=== PATIENT | male | born 1935 | race Caucasian/White ===

== ENCOUNTER 2020-07-02 08:32 | Inpatient (IN) | payer MEDICARE, MEDICAID, SELFPAY ==
[~2020-07-02] VITALS: Ht 172.7 cm; Wt 140.6 kg
--- NOTE | 2020-07-02 08:35 | NUR ---
BIBA TAKEN TO BED 6
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
[2020-07-02 08:42] VITALS: BP 130/92
--- NOTE | 2020-07-02 08:59 | NUR ---
lab at bedside. gave urine collection
--- NOTE | 2020-07-02 09:08 | NUR ---
XRAY AT PT BEDSIDE
--- NOTE | 2020-07-02 09:13 | NUR ---
MACIEJ RICH AND NOVEL SAMPLES COLLECTED AND GIVEN TO DRAWER MAKER
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
[2020-07-02 09:32] LABS: BASOPHILS # (AUTO) 0.1 K/uL (0.00-0.22); BASOPHILS % (AUTO) 1.1 % (0.0-2.0); EOSINOPHILS # (AUTO) 0.1 K/uL (0-0.4); EOSINOPHILS % (AUTO) 1.6 % (0.0-4.0); HEMATOCRIT 34.4 % (36-52); HEMOGLOBIN 11.1 g/dL (12.0-18.0); LYMPHOCYTES # (AUTO) 0.9 K/uL (2.0-11.5); MEAN CORPUSCULAR HEMOGLOBIN 29 pg (27-31); MEAN CORPUSCULAR HGB CONC 32 g/dL (33-37); MEAN CORPUSCULAR VOLUME 89.2 fL (80-94); MONOCYTES # (AUTO) 0.3 K/uL (0.8-1.0); MONOCYTES % (AUTO) 6.1 % (1.7-9.3); NEUTROPHILS # (AUTO) 4.1 K/uL (1.8-7.7); NEUTROPHILS % (AUTO) 74.2 % (42.2-75.2); PLATELET COUNT (AUTO) 181 K/uL (140-450); RED BLOOD CELL COUNT(AUTO) 3.86 MIL/uL (4.20-6.10); RED CELL DISTRIBUTION WIDTH 17.3 % (11.6-13.7); WHITE BLOOD COUNT (AUTO) 5.6 K/uL (4.8-10.8)
--- NOTE | 2020-07-02 09:43 | NUR ---
PT REQUESTING ASSISTANCE WITH URINAL.
[2020-07-02 09:44] LABS: APPEARANCE,URINE CLEAR (CLEAR); BILIRUBIN,URINE NEGATIVE (NEGATIVE); BLOOD, URINE TRACE-I (NEGATIVE); COLOR,URINE YELLOW (YELLOW); LEUKOCYTE ESTERASE ,URINE NEGATIVE (NEGATIVE); NITRITE, URINE POSITIVE (NEGATIVE); UGLUCOSE NEGATIVE (NEGATIVE)
[2020-07-02 09:50] LABS: ACETAMINOPHEN < 0.5 ug/ml (10-30); ALBUMIN 2.8 g/dL (3.4-5.0); ANION GAP 14.2 (8-16); ASPARTATE AMINOTRANSFERASE 54 U/L (15-37); CARBON DIOXIDE 23.1 mmol/L (21-32); CHLORIDE 107 mmol/L (98-107); GLUCOSE 106 mg/dL (74-106); POTASSIUM 3.3 mmol/L (3.5-5.1); SALICYLATE < 2.8 mg/dL (2.8-20.0); SODIUM SERUM 141 mmol/L (136-145); TOTAL BILIRUBIN 0.4 mg/dL (0.0-1.0); UREA NITROGEN, BLOOD 14 mg/dL (7-18)
[2020-07-02 09:51] LABS: BARBITURATE, URINE NEGATIVE ng/ml (NEG <=200); BENZODIAZEPINE, URINE NEGATIVE ng/mL (NEG <=200); CANNABINOID, URINE NEGATIVE ng/mL (NEG <=50); COCAINE, URINE NEGATIVE ng/mL (NEG <=300); OPIATE, URINE NEGATIVE ng/mL (NEG <=2000); PHENCYCLIDINE SCREEN,URINE NEGATIVE ng/mL (NEG <=25)
[2020-07-02 10:08] LABS: RBC,URINE 0-5 /HPF (0-5)
--- NOTE | 2020-07-02 10:14 | NUR ---
PT REFUSING TO CHANGE INTO A GOWN AT THIS TIME.
--- NOTE | 2020-07-02 10:44 | NUR ---
PT REFUSING IV INSERTING AND ABX. DR CULVER MADE AWARE.
[2020-07-02] MEDS ORDERED: guaiFENesin DM 200/20 MG-10 ML 10 ML UDC PO PRN (10:50)
[2020-07-02] MEDS ORDERED: POTASSIUM CHLORIDE 10 MEQ TABER PO PRN (10:50)
[2020-07-02] MEDS ORDERED: ACETAMINOPHEN 325 MG TAB PO PRN (10:50)
[2020-07-02] MEDS ORDERED: ZOLPIDEM 5 MG TAB PO PRN (10:50)
[2020-07-02] MEDS ORDERED: ONDANSETRON 4 MG/2 ML VIAL IM/IVP PRN (10:50)
[2020-07-02] MEDS ORDERED: DOCUSATE SODIUM 100 MG GELCAP PO PRN (10:50)
--- NOTE | 2020-07-02 11:00 | NUR ---
Per pt takes gabapentin, benzononatate, levothyroxine, cephalexine, omeprazole, netropolol, atorvastatin, pradaxan, and cefprodoxime. Pt unable to recall dosages and when it is taken.
--- NOTE | 2020-07-02 11:11 | NUR ---
REPORT GIVEN TO AMY MENDOZA. ETA 10 MINS
[2020-07-02 11:20] VITALS: BP 159/61
[2020-07-02] MEDS: NACL 0.9% 1,000 ML IV SCH ×2 (11:30→18:03)
--- NOTE | 2020-07-02 11:38 | NUR ---
Patient will be admitted to care of DR. ELIZABET FELICIANO. Admited to [facility]. Will go to room 109B. Belongings list completed. Report to AMY MENDOZA.
[2020-07-02 11:51] LABS: CHOL/HDL RATIO 4.6 (1-4.5); FREE T4 (FREE THYROXINE) 1.04 ng/dL (0.76-1.46); MAGNESIUM 1.6 mg/dL (1.8-2.4); PHOSPHORUS 2.5 mg/dL (2.5-4.9); THYROID STIMULATING HORMONE 10.01 uIU/mL (0.34-3.74)
[2020-07-02 12:07] LABS: PROTHROMBIN TIME 11.2 secs (10.8-13.4)
--- NOTE | 2020-07-02 12:35 | NUR ---
PATIENT REFUSED CT OF HEAD. MADE AWARE.
[2020-07-02] MEDS: Z-GUARD PASTE TP SCH (13:00)
--- NOTE | 2020-07-02 15:18 | NUR ---
PATIENT SITTING AT SIDE OF THE BED, ASSISTED PATIENT TO GO BACK TO BED IN SUPINE POSITION, NO ACUTE DISTRESS NOTED. WILL CONTINUE TO MONITOR.
[2020-07-02 16:00] VITALS: BP 141/79
--- NOTE | 2020-07-02 16:09 | NUR ---
P.T. NOTES P.T. EVAL COMPLETED; REFER TO EVAL FOR DETAILS.
--- NOTE | 2020-07-02 17:12 | NUR ---
[facility] has faxed packet to following facilities for review [facility]
--- NOTE | 2020-07-02 17:12 | NUR ---
[facility] aware of pt
--- NOTE | 2020-07-02 17:13 | NUR ---
Pt pending PCR covid results
[2020-07-02] MEDS ORDERED: DEXTROSE 50% 50 ML SYR IVP PRN (17:30)
--- NOTE | 2020-07-02 18:04 | NUR ---
PATIENT ALLOWED SN TO START IV AT THIS TIME, WHICH HAS BEEN REFUSED IN THE ER. NEW IV STARTED AT LEFT HAND 22G. IVF NS STARTED.
--- NOTE | 2020-07-02 19:45 | NUR ---
ENDORSED PATIENT TO EQUIPMENT MECHANIC SPECIALIST RN FOR CONTINUITY OF CARE. PATIENT IN STABLE CONDITION.
[2020-07-02 20:00] VITALS: BP 113/82
[2020-07-02] MEDS: BLOOD GLUCOSE MONITORING 1 DEV DEV FS SCH (21:00)
[2020-07-02] MEDS: DABIGATRAN ETEXILATE MESYLAT 75 MG CAP PO SCH (21:30)
--- NOTE | 2020-07-02 22:29 | NUR ---
RELAY TO DR. TORRES THE LATEST TRENDING UP SERUM TROPONIN OF THE PT. FROM 0.080 TO 0.085 , PT DENIES ANY PAIN AT THIS TIME - PER DR. TORRES ITS OK TO DISCONTINUE THE TROPONIN CHECKINGS - DR. IVY WILL COVER DR. TORRES FOR THIS WEEK - WILL ENDORSE . NO FURTHER ORDERS MADE FROM DR. TORRES . Addendum: 07/03/20 at 0814 by Jazlyn Narayanan RN PER DR. TORRES NO NEED TO WORRY ABOUT THE TROPONIN - NO NEED TO BE REPEATED .
--- NOTE | 2020-07-03 | NUR ---
MADE ROUNDS , NO S/SX OF ACUTE DISTRESS NOTED - WILL CONT. TO MONITOR .
[2020-07-03] MEDS: Z-GUARD PASTE TP SCH ×2 (01:00→13:15)
--- NOTE | 2020-07-03 04:00 | NUR ---
O2 SAT WNL . NO S/SX OF ACUTE DISTRESS NOTED .
--- NOTE | 2020-07-03 04:37 | NUR ---
Call Center still aware of patient. Waiting for Covid results before placement
--- NOTE | 2020-07-03 06:00 | NUR ---
MADE ROUNDS , NO S/X OF ACUTE DISTRESS NOTED . WILL CONT. TO MONITOR .
--- NOTE | 2020-07-03 06:30 | NUR ---
ASKING THE TEL NUMBER OF [employer] - HE SAID HE WANTS TO CALL THEM TO VERIFY IF HIS FACILITY ADMINISTRATOR'S LICENSE IS IN THERE - ALSO ASKING THE CPONTACT NO. OF HIS - I PROVIDED ALL THE NUMBERS TO HIM .
[2020-07-03] MEDS: BLOOD GLUCOSE MONITORING 1 DEV DEV FS SCH ×4 (06:51→21:00)
[2020-07-03 06:53] LABS: BASOPHILS # (AUTO) 0.1 K/uL (0.00-0.22); BASOPHILS % (AUTO) 1.4 % (0.0-2.0); EOSINOPHILS # (AUTO) 0.2 K/uL (0-0.4); EOSINOPHILS % (AUTO) 5.6 % (0.0-4.0); HEMATOCRIT 30.4 % (36-52); LYMPHOCYTES # (AUTO) 1.2 K/uL (2.0-11.5); LYMPHOCYTES % (AUTO) 33.3 % (20.5-51.1); MEAN CORPUSCULAR HEMOGLOBIN 29 pg (27-31); MEAN CORPUSCULAR HGB CONC 33 g/dL (33-37); MEAN CORPUSCULAR VOLUME 88.3 fL (80-94); MONOCYTES # (AUTO) 0.3 K/uL (0.8-1.0); MONOCYTES % (AUTO) 8.9 % (1.7-9.3); NEUTROPHILS # (AUTO) 1.9 K/uL (1.8-7.7); NEUTROPHILS % (AUTO) 50.8 % (42.2-75.2); PLATELET COUNT (AUTO) 150 K/uL (140-450); RED BLOOD CELL COUNT(AUTO) 3.45 MIL/uL (4.20-6.10); RED CELL DISTRIBUTION WIDTH 17.6 % (11.6-13.7); WHITE BLOOD COUNT (AUTO) 3.7 K/uL (4.8-10.8)
[2020-07-03 07:01] LABS: ANION GAP 11.9 (8-16); CHLORIDE 109 mmol/L (98-107); CREATININE 0.8 mg/dL (0.6-1.3); GLUCOSE 170 mg/dL (74-106); POTASSIUM 3.9 mmol/L (3.5-5.1); SODIUM SERUM 141 mmol/L (136-145); UREA NITROGEN, BLOOD 9 mg/dL (7-18)
--- NOTE | 2020-07-03 07:35 | NUR ---
RECEIVED PATIENT FROM NIGHT NURSE. PATIENT IN BED AWAKE AND ALERT. RESP EVEN AND UNLABORED ON ROOM AIR. ABLE TO FOLLOW COMMANDS. DENIED OF PAIN AT THIS TIME. LH 22G INFUSING NS 60ML/HR. PLAN OF CARE DISCUSSED, PATIENT VERBALIZED UNDERSTANDING. CALL LIGHT WITHIN REACH. WILL CONTINUE TO MONITOR.
--- NOTE | 2020-07-03 07:35 | NUR ---
ENDORSED - PT - STABLE .
[2020-07-03 08:00] VITALS: BP 152/81
[2020-07-03 08:08] LABS: FOLIC ACID 10.3 ng/mL (>3.0); T4 (THYROXINE) 5.7 ug/dL (4.5-12.0)
[2020-07-03] MEDS: PANTOPRAZOLE 40 MG TABEC PO SCH (08:20)
[2020-07-03] MEDS: ATORVASTATIN 20 MG TAB PO SCH (08:20)
[2020-07-03] MEDS: DABIGATRAN ETEXILATE MESYLAT 75 MG CAP PO SCH ×2 (08:20→21:00)
[2020-07-03] MEDS: NACL 0.9% 1,000 ML IV SCH (08:22)
--- NOTE | 2020-07-03 08:35 | NUR ---
PATIENT IN BED AWAKE AND ALERT. PATIENT ASSISTED TO SITTING POSITION BY BEDSIDE. MORNING ROUTINE MEDICATIONS. PATIENT TOLERATED WELL. RESP EVEN AND UNLABORED ON ROOM AIR. LH 22G INFUSING NS 60ML/HR. NO NOTED DISTRESS AT THIS TIME. PATIENT SITTING UP EATING BREAKFAST. CALL LIGHT WITHIN REACH. WILL CONTINUE TO MONITOR.
--- NOTE | 2020-07-03 09:08 | NUR ---
PATIENT HAS BEEN SCREENED AND CATEGORIZED HIGH NUTRITION RISK. PATIENT WILL BE SEEN WITHIN 1-2 DAYS OF ADMISSION. 07/03/2020-07/04/[address]
--- NOTE | 2020-07-03 10:45 | NUR ---
PATIENT IN BED SLEEPING, CHEST NOTED RISING. NO ACUTE S/S DISTRESS. CALL LIGHT WITHIN REACH. WILL CONTINUE TO MONITOR.
[2020-07-03] MEDS: INSULIN LISPRO SLIDING SCALE 100 UNITS/ML VIAL SUBQ PRN ×3 (12:11→20:39)
--- NOTE | 2020-07-03 12:44 | NUR ---
BLOOD SUGAR 260. INSULIN PROVIDED PER SLIDING SCALE. PATIENT SITTING BY BEDSIDE AWAKE AND ALERT. ABLE TO FOLLOW COMMANDS. NO NOTED DISTRESS AT THIS TIME. CALL LIGHT WITHIN REACH. WILL CONTINUE TO MONITOR.
--- NOTE | 2020-07-03 13:50 | NUR ---
WOUND CARE PROVIDED. PATIENT TOLERATED WELL. DENIED OF PAIN
--- NOTE | 2020-07-03 14:25 | NUR ---
PATIENT IN BED TALKING ON THE CELL PHONE. NO NOTED DISTRESS AT THIS TIME. ABLE TO FOLLOW COMMANDS AND MAKE NEEDS KNOWN. CALL LIGHT WITHIN REACH. WILL CONTINUE TO MONITOR.
[2020-07-03 16:00] VITALS: BP 118/60
--- NOTE | 2020-07-03 17:04 | NUR ---
PATIENT IN BED TALKING TO FAMILY MEMBER. AWAKE AND ALERT. DENIED OF PAIN. RESP EVEN AND UNLABORED ON ROOM AIR. CALL LIGHT WITHIN REACH. WILL CONTINUE TO MONITOR
--- NOTE | 2020-07-03 19:05 | NUR ---
PATIENT ENDORSED TO NIGHT NURSE. PATIENT IN STABLE CONDITION.
[2020-07-04] VITALS: BP 169/75
[2020-07-04] MEDS: Z-GUARD PASTE TP SCH ×3 (01:00→21:21)
[2020-07-04] MEDS: HYDROcodone/APAP 7.5/325 MG 1 TAB PO PRN (03:05)
[2020-07-04] MEDS: NACL 0.9% 1,000 ML IV SCH (03:09)
[2020-07-04] MEDS: LEVOTHYROXINE 0.025 MG TAB PO SCH (06:26)
[2020-07-04] MEDS: BLOOD GLUCOSE MONITORING 1 DEV DEV FS SCH ×4 (06:32→21:21)
[2020-07-04] MEDS: INSULIN LISPRO SLIDING SCALE 100 UNITS/ML VIAL SUBQ PRN ×4 (06:37→21:18)
--- NOTE | 2020-07-04 07:15 | NUR ---
RECEIVED PATIENT FROM NIGHT NURSE. PATIENT AWAKE AND ALERT. SLEPT WELL THROUGH THE NIGHT. RESP EVEN AND UNLABORED ON ROOM AIR. DENIED OF PAIN AT THIS TIME. LH 22G INFUSING NS 60ML/HR. PATIENT ABLE TO MAKE NEEDS KNOWN AND FOLLOW COMMANDS. CALL LIGHT WITHIN REACH. WILL CONTINUE TO MONITOR.
[2020-07-04 07:52] LABS: EOSINOPHILS # (AUTO) 0.2 K/uL (0-0.4); HEMATOCRIT 32.3 % (36-52); HEMOGLOBIN 10.5 g/dL (12.0-18.0); LYMPHOCYTES # (AUTO) 1.5 K/uL (2.0-11.5); LYMPHOCYTES % (AUTO) 38.8 % (20.5-51.1); MEAN CORPUSCULAR HEMOGLOBIN 29 pg (27-31); MEAN CORPUSCULAR HGB CONC 33 g/dL (33-37); MONOCYTES # (AUTO) 0.3 K/uL (0.8-1.0); MONOCYTES % (AUTO) 8.6 % (1.7-9.3); NEUTROPHILS # (AUTO) 1.9 K/uL (1.8-7.7); NEUTROPHILS % (AUTO) 47.6 % (42.2-75.2); PLATELET COUNT (AUTO) 167 K/uL (140-450); RED BLOOD CELL COUNT(AUTO) 3.63 MIL/uL (4.20-6.10); RED CELL DISTRIBUTION WIDTH 17.9 % (11.6-13.7); WHITE BLOOD COUNT (AUTO) 3.9 K/uL (4.8-10.8)
[2020-07-04 08:00] VITALS: BP 141/59
[2020-07-04 08:22] LABS: ANION GAP 14.6 (8-16); CARBON DIOXIDE 22.4 mmol/L (21-32); CHLORIDE 107 mmol/L (98-107); CREATININE 0.9 mg/dL (0.6-1.3); GLUCOSE 247 mg/dL (74-106); SODIUM SERUM 140 mmol/L (136-145); UREA NITROGEN, BLOOD 7 mg/dL (7-18)
[2020-07-04] MEDS: PANTOPRAZOLE 40 MG TABEC PO SCH (08:53)
[2020-07-04] MEDS: DABIGATRAN ETEXILATE MESYLAT 75 MG CAP PO SCH ×2 (08:54→21:19)
[2020-07-04] MEDS: ATORVASTATIN 20 MG TAB PO SCH (08:54)
--- NOTE | 2020-07-04 09:05 | NUR ---
PATIENT SITTING BY BEDSIDE EATING BREAKFAST. RESP EVEN AND UNLABORED ON ROOM AIR. DENIED OF PAIN THIS TIME. ABLE TO FOLLOW COMMAND AND MAKE NEEDS KNOWN. LH 22G INFUSING NS 60ML/HR. MORNING ROUTINE MEDICATIONS GIVEN. PATIENT TOLERATED WELL. CALL LIGHT WITHIN REACH. WILL CONTINUE TO MONITOR.
--- NOTE | 2020-07-04 11:26 | NUR ---
(07/04/20) RD INITIAL ASSESSMENT COMPLETED PLEASE REFER TO NUTRITION ASSESSMENT UNDER CARE ACTIVITY FOR ESTIMATED NUTRITIONAL NEEDS. RD RECOMMENDATIONS: 1. CONTINUE CCHO 60 GM DIET TOLERATED. 2. RDN ADDED DIET HEALTH SHAKE 1 CARTON WTIH EACH MEAL TID TO BETTER MEET ESTIMATED KCAL NEEDS. DIET HEALTH SHAKE 1 CARTON WITH EACH MEAL TID WILL PROVIDE ADDITIONAL 600 KCAL AND 21 GM PROTEIN. WITH CURRENT INTAKE PATTERN OF 100% & DIET HEALTH SHAKES TID, PT WITH MEET 73% OF ESTIMATED KCAL NEEDS. 3. RD WILL F/U 3-5 DAYS; MODERATE RISK. 5. RDN PROVIDED DIABETES DIET EDUCATION TO PATIENT; PT AND FAMILY ACCEPTED DIABETES DIET EDUCATION. JOHN PIÑA, MS, RDN
--- NOTE | 2020-07-04 11:55 | NUR ---
BLOOD SUGAR 306. INSULIN PROVIDED PER SLIDING SCALE. PATIENT SITTING BY BEDSIDE TALKING TO FAMILY. NO NOTED DISTRESS. CALL LIGHT WITHIN REACH. WILL CONTINUE TO MONITOR.
--- NOTE | 2020-07-04 13:00 | NUR ---
CALLED DR. LENTZ ON HIS CELL PHONE TO FOLLOW UP THE PSYCH CONSULT. NO ANSWER. VOICEMAIL MESSAGE LEFT. AWAITING FOR CALL BACK.
--- NOTE | 2020-07-04 14:25 | NUR ---
PATIENT IN BED TALKING ON THE CELL PHONE. NO NOTED DISTRESS. CALL LIGHT WITHIN REACH. WILL CONTINUE TO MONITOR.
--- NOTE | 2020-07-04 16:35 | NUR ---
PATIENT ASSISTED TO THE BATHROOM BY CHARGE ACCOUNT AUTHORIZER. PATIENT AMBULATED WITH STEADY GAIT WITH STANDBY ASSIST. NO NOTED SOB OR DISTRESS. WILL CONTINUE TO MONITOR.
--- NOTE | 2020-07-04 18:01 | NUR ---
BLOOD SUGAR 280. INSULIN PROVIDED PER SLIDING SCALE. PATIENT IN BED TALKING TO FAMILY MEMBER. NO NOTED DISTRESS. CALL LIGHT WITHIN REACH. WILL CONTINUE TO MONITOR.
[2020-07-04] MEDS: MUPIROCIN CA NASAL 2% 1GM TUBE NS SCH (18:57)
[2020-07-04] MEDS: CHLORHEXADINE GLUC 2% CLOTH TP SCH (18:57)
--- NOTE | 2020-07-04 19:16 | NUR ---
ENDORSED PATIENT TO NIGHT NURSE. PATIENT IN STABLE CONDITION.
[2020-07-04 20:00] VITALS: BP 108/75
[2020-07-04] MEDS: INSULIN LANTUS 100 UNITS/ML 10 ML VIAL SUBQ SCH (21:19)
[2020-07-05] MEDS: HYDROcodone/APAP 7.5/325 MG 1 TAB PO PRN (00:16)
[2020-07-05 04:00] VITALS: BP 179/92
[2020-07-05] MEDS: NACL 0.9% 1,000 ML IV SCH ×2 (04:14→22:10)
--- NOTE | 2020-07-05 05:34 | NUR ---
PT HAS BEEN PROGRESSIVELY CONFUSED DURING SHIFT. PT GETTING OOB TO URINATE Q 1-2HRS. AT APPROX 0300 PT UNDRESSED, GOT OOB AND PULLED OUT PERIPHERAL IV IN PROCESS. PT CLEANED UP AND ESCORTED BACK TO BED. REORIENTED PT TO SITUATION. PT REMAINS MODERATELY CONFUSED. CONTINUE TO ROUND Q 1 HR ON PT. PT REMAINS CLOSE TO NURSES STATION.
[2020-07-05] MEDS: LEVOTHYROXINE 0.025 MG TAB PO SCH (05:44)
[2020-07-05] MEDS: INSULIN LISPRO SLIDING SCALE 100 UNITS/ML VIAL SUBQ PRN ×4 (06:02→21:00)
[2020-07-05] MEDS: BLOOD GLUCOSE MONITORING 1 DEV DEV FS SCH ×4 (06:03→21:05)
[2020-07-05 06:37] LABS: BASOPHILS % (AUTO) 1.3 % (0.0-2.0); EOSINOPHILS # (AUTO) 0.2 K/uL (0-0.4); EOSINOPHILS % (AUTO) 4.7 % (0.0-4.0); HEMATOCRIT 32.2 % (36-52); HEMOGLOBIN 10.6 g/dL (12.0-18.0); LYMPHOCYTES # (AUTO) 1.5 K/uL (2.0-11.5); LYMPHOCYTES % (AUTO) 42.9 % (20.5-51.1); MEAN CORPUSCULAR HEMOGLOBIN 29 pg (27-31); MEAN CORPUSCULAR HGB CONC 33 g/dL (33-37); MEAN CORPUSCULAR VOLUME 88.1 fL (80-94); MONOCYTES # (AUTO) 0.3 K/uL (0.8-1.0); MONOCYTES % (AUTO) 8.4 % (1.7-9.3); NEUTROPHILS # (AUTO) 1.5 K/uL (1.8-7.7); NEUTROPHILS % (AUTO) 42.7 % (42.2-75.2); PLATELET COUNT (AUTO) 177 K/uL (140-450); RED BLOOD CELL COUNT(AUTO) 3.65 MIL/uL (4.20-6.10); RED CELL DISTRIBUTION WIDTH 17.5 % (11.6-13.7); WHITE BLOOD COUNT (AUTO) 3.5 K/uL (4.8-10.8)
[2020-07-05 07:46] LABS: ANION GAP 14.6 (8-16); CARBON DIOXIDE 25.3 mmol/L (21-32); CHLORIDE 104 mmol/L (98-107); CREATININE 0.9 mg/dL (0.6-1.3); GLUCOSE 268 mg/dL (74-106); POTASSIUM 3.9 mmol/L (3.5-5.1); SODIUM SERUM 140 mmol/L (136-145)
[2020-07-05 08:15] VITALS: BP 180/73
[2020-07-05] MEDS: DABIGATRAN ETEXILATE MESYLAT 75 MG CAP PO SCH ×2 (08:15→20:57)
[2020-07-05] MEDS: PANTOPRAZOLE 40 MG TABEC PO SCH (08:15)
[2020-07-05] MEDS: ATORVASTATIN 20 MG TAB PO SCH (08:15)
--- NOTE | 2020-07-05 08:16 | NUR ---
SCHEDULED MEDICATIONS GIVEN, EDUCATION PROVIDED. VITAL SIGNS CHECKED. PATIENT'S BP ELEVATED 180/73. PATIENT REMAIN CALM. REPORT TO DR. RAZO. WAITING FOR RESPONSE.
[2020-07-05] MEDS: METOPROLOL 25 MG TAB PO SCH ×2 (09:16→20:56)
--- NOTE | 2020-07-05 09:18 | NUR ---
METOPROLOL GIVEN. EDUCATION PROVIDED. PATIENT TAKING OVER THE PHONE WITH HIS FIANCE. NO ACUTE DISTRESS NOTED, WILL CONTINUE TO MONITOR.
[2020-07-05 09:31] LABS: UREA NITROGEN, BLOOD 5 mg/dL (7-18)
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
[2020-07-05] MEDS: Z-GUARD PASTE TP SCH (13:42)
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
[2020-07-05 16:00] VITALS: BP 156/67
--- NOTE | 2020-07-05 16:16 | NUR ---
PASSWORD NEEDED FOR INFORMATION TO BE RELEASED
--- NOTE | 2020-07-05 16:25 | NUR ---
PATIENT ACCIDENTLY PULLED OUT THE IV, BLEEDING, COVERED WITH GAUZE AND SECURED WITH TAPE, WILL TRY TO INSERT NEW ONE.
--- NOTE | 2020-07-05 16:48 | NUR ---
8 UNITS OF HUMALOG GIVEN FOR BS LEVEL 325. EDUCATION PROVIDED. VERBALIZED UNDERSTANDING. PATIENT SITTING AT SIDE OF THE BED PLAYING WITH HIS CELLPHONE, NO ACUTE DISTRESS NOTED, WILL CONTINUE TO MONITOR.
[2020-07-05] MEDS: CHLORHEXADINE GLUC 2% CLOTH TP SCH (18:36)
[2020-07-05] MEDS: MUPIROCIN CA NASAL 2% 1GM TUBE NS SCH (18:36)
--- NOTE | 2020-07-05 18:45 | NUR ---
FAILED TO INSERT IV, CHARGE NURSED TRIED AND NOT ABLE TO INSERT IV SUCCESSFULLY. WILL FOLLOW UP.
--- NOTE | 2020-07-05 19:19 | NUR ---
ENDORSED PATIENT TO MEAT SEAFOOD ASSOCIATE RN FOR CONTINUITY OF CARE. PATIENT IN STABLE CONDITION BUT WITH CONFUSION.
[2020-07-05 20:00] VITALS: BP 155/67
--- NOTE | 2020-07-05 20:00 | NUR ---
RECEIVED REPORT FROM AMY/RN, CARE ASSUMED.
[2020-07-05] MEDS: INSULIN LANTUS 100 UNITS/ML 10 ML VIAL SUBQ SCH (20:58)
[2020-07-06] MEDS: Z-GUARD PASTE TP SCH ×2 (00:12→12:56)
[2020-07-06 04:00] VITALS: BP 160/81
[2020-07-06] MEDS: INSULIN LISPRO SLIDING SCALE 100 UNITS/ML VIAL SUBQ PRN ×4 (05:41→21:41)
[2020-07-06] MEDS: LEVOTHYROXINE 0.025 MG TAB PO SCH (05:43)
[2020-07-06] MEDS: BLOOD GLUCOSE MONITORING 1 DEV DEV FS SCH ×4 (05:45→21:41)
--- NOTE | 2020-07-06 05:59 | NUR ---
Packet faxed to [facility]
[2020-07-06 06:37] LABS: BASOPHILS # (AUTO) 0.1 K/uL (0.00-0.22); BASOPHILS % (AUTO) 1.3 % (0.0-2.0); EOSINOPHILS # (AUTO) 0.1 K/uL (0-0.4); EOSINOPHILS % (AUTO) 3.5 % (0.0-4.0); HEMATOCRIT 33.2 % (36-52); HEMOGLOBIN 10.9 g/dL (12.0-18.0); LYMPHOCYTES # (AUTO) 1.5 K/uL (2.0-11.5); LYMPHOCYTES % (AUTO) 35.8 % (20.5-51.1); MEAN CORPUSCULAR HEMOGLOBIN 29 pg (27-31); MEAN CORPUSCULAR HGB CONC 33 g/dL (33-37); MEAN CORPUSCULAR VOLUME 88.1 fL (80-94); MONOCYTES # (AUTO) 0.3 K/uL (0.8-1.0); MONOCYTES % (AUTO) 8.1 % (1.7-9.3); NEUTROPHILS # (AUTO) 2.1 K/uL (1.8-7.7); NEUTROPHILS % (AUTO) 51.3 % (42.2-75.2); PLATELET COUNT (AUTO) 188 K/uL (140-450); RED BLOOD CELL COUNT(AUTO) 3.77 MIL/uL (4.20-6.10); RED CELL DISTRIBUTION WIDTH 17.3 % (11.6-13.7); WHITE BLOOD COUNT (AUTO) 4.1 K/uL (4.8-10.8)
[2020-07-06 06:56] LABS: ANION GAP 10.5 (8-16); CARBON DIOXIDE 28.2 mmol/L (21-32); CHLORIDE 102 mmol/L (98-107); GLUCOSE 305 mg/dL (74-106); POTASSIUM 3.7 mmol/L (3.5-5.1); SODIUM SERUM 137 mmol/L (136-145); UREA NITROGEN, BLOOD 9 mg/dL (7-18)
--- NOTE | 2020-07-06 07:20 | NUR ---
RECEIVED REPORT FROM NIGHT NURSE PATIENT IS SLEEPING AND ON ROOM AIR, CONTINENT,IV INTACT ON RIGHT FOREARM, SKIN INTEGRITY WITH ABRASIONS ON LEFT ELBOW, RIGHT HIP AND SACRAL AREA, FOR PRYCHE CONSULT AND PT EVAL. SAFETY MEASURES IN PLACE AND CALL LIGHT WITHIN REACH. WILL CONTINUE TO MONITOR.
[2020-07-06] MEDS: METOPROLOL 25 MG TAB PO SCH (08:24)
[2020-07-06] MEDS: PANTOPRAZOLE 40 MG TABEC PO SCH (08:24)
--- NOTE | 2020-07-06 08:24 | NUR ---
SCHEDULED MEDICATION GIVEN AND CHECK VITAL SIGNS PRIOR TO MEDICATION BP 139/65 FL 73 PATIENT TOLERATED WELL AND COOPERATIVE. SAFETY MEASURES IN PLACE AND CALL LIGHT WITHIN REACH. WILL CONTINUE TO MONITOR.
[2020-07-06] MEDS: ATORVASTATIN 20 MG TAB PO SCH (08:25)
[2020-07-06] MEDS: DABIGATRAN ETEXILATE MESYLAT 75 MG CAP PO SCH ×2 (08:25→21:34)
--- NOTE | 2020-07-06 08:53 | NUR ---
Received report. [facility] working on placement at this time.
--- NOTE | 2020-07-06 09:14 | NUR ---
RECEIVED A CALL FROM LIANA CRUZ [facility] TO GET UPDATE ABOUT THE PATIENT.
[2020-07-06] MEDS ORDERED: LANTUS SUBQ (11:02)
[2020-07-06] MEDS ORDERED: DABI75CA PO (11:02)
[2020-07-06] MEDS ORDERED: PANT40EC56 PO (11:02)
[2020-07-06] MEDS ORDERED: ZGUARD TP (11:02)
[2020-07-06] MEDS ORDERED: CHLO118S2 TP (11:02)
[2020-07-06] MEDS ORDERED: ATOR20TA40 PO (11:02)
[2020-07-06] MEDS ORDERED: METO25TA PO (11:02)
[2020-07-06] MEDS ORDERED: MUPI2CRE22 NS (11:02)
[2020-07-06] MEDS ORDERED: LEVO0.0211 PO (11:02)
--- NOTE | 2020-07-06 11:30 | NUR ---
BLOOD SUGAR 379 MG/DL INSULIN OF 10 UNITS GIVEN.
[2020-07-06 12:00] VITALS: BP 155/62
[2020-07-06] MEDS: NACL 0.9% 1,000 ML IV SCH (14:50)
--- NOTE | 2020-07-06 15:07 | NUR ---
RECEIVED CALL FROM OLIVE KNOCKER MARU. PATIENT WILL NOT BE GOING HOME TODAY. INSTEAD BE TRANSFERRED TO [facility]. PATIENT IS UNABLE TO TAKE CARE OF HIMSELF AND NOTED FORGETFUL.
--- NOTE | 2020-07-06 16:30 | NUR ---
BLOOD SUGAR 207 MG/DL INSULIN COVERAGE GIVEN.
[2020-07-06] MEDS: MUPIROCIN CA NASAL 2% 1GM TUBE NS SCH (18:05)
[2020-07-06] MEDS: CHLORHEXADINE GLUC 2% CLOTH TP SCH (18:05)
--- NOTE | 2020-07-06 18:05 | NUR ---
MEDICATIONS DUE GIVEN. PATIENT IN STABLE CONDITION.
--- NOTE | 2020-07-06 19:11 | NUR ---
ENDORSED TO NIGHT NURSE FOR CONTINUITY OF CARE. PT IS STABLE.
--- NOTE | 2020-07-06 19:12 | NUR ---
RECD. IN BED, AWAKE, A/OX2, CONFUSED. RESPIRATION EVEN AND UNLABORED. REORIENTED TO HOSPITAL SETTING. IV OF NS AT 60 ML/HR, RIGHT FOREARM G22. AMBULATORY TO THE BATHROOM. SAFETY MEASURES ENFORCED. BED IN THE LOWEST POSITION, SIDE RAILS UP. WITH ABRASIONS, LEFT ELBOW, RIGHT HIP OPEN TO AIR, SACRAL WITH DRESSING DRY AND INTACT. DISCUSSED MEDICATIONS AND CARE FOR THE NIGHT. NEEDS REINFORCEMENT. DENIES PAIN 0/10.
[2020-07-06 20:00] VITALS: BP 135/60
--- NOTE | 2020-07-06 20:00 | NUR ---
TRYING TO PULL OUT IV. ALWAYS GETTING IN AND OUT OF BED.
--- NOTE | 2020-07-06 21:21 | NUR ---
Patient's Plan of Care was discussed and reviewed with FLYING I INSTRUCTOR: KE GALARZA
[2020-07-06] MEDS: METOPROLOL 50 MG TAB PO SCH (21:31)
--- NOTE | 2020-07-06 21:31 | NUR ---
DUE MEDICATIONS GIVEN, COOPERATIVE. SNACK GIVEN FOR THE NIGHT.
[2020-07-06] MEDS: INSULIN LANTUS 100 UNITS/ML 10 ML VIAL SUBQ SCH (21:36)
--- NOTE | 2020-07-06 23:00 | NUR ---
VERBALIZED SEEING THINGS ON THE QUINTERO, REORIENTED TO HOSPITAL SETTING.
--- NOTE | 2020-07-06 23:21 | NUR ---
[facility] s/w Brianda-no beds [facility] s[facility]w Mirna-no beds [facility]
--- NOTE | 2020-07-07 01:30 | NUR ---
TRYING TO GET OUT OF THE ROOM, REDIRECTED TO WHERE THE BATHROOM WHERE HE CAN VOID.
[2020-07-07] MEDS: Z-GUARD PASTE TP SCH ×2 (01:44→13:18)
[2020-07-07 04:00] VITALS: BP 165/66
--- NOTE | 2020-07-07 04:30 | NUR ---
AWAKE, STANDING ON THE DOOR, WANTS TO TAKE OFF HIS GOWN. ASSISTED BACK TO THE BED AND REORIENTED TO HOSPITAL SETTING.
[2020-07-07] MEDS: LEVOTHYROXINE 0.025 MG TAB PO SCH (06:36)
[2020-07-07] MEDS: BLOOD GLUCOSE MONITORING 1 DEV DEV FS SCH ×2 (06:39→12:23)
[2020-07-07] MEDS: INSULIN LISPRO SLIDING SCALE 100 UNITS/ML VIAL SUBQ PRN ×2 (06:40→12:23)
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
[2020-07-07 07:07] LABS: ANION GAP 13.5 (8-16); CARBON DIOXIDE 27.5 mmol/L (21-32); CHLORIDE 102 mmol/L (98-107); CREATININE 1.1 mg/dL (0.6-1.3); GLUCOSE 311 mg/dL (74-106); SODIUM SERUM 139 mmol/L (136-145); UREA NITROGEN, BLOOD 13 mg/dL (7-18)
--- NOTE | 2020-07-07 07:30 | NUR ---
RECEIVED BEDSIDE REPORT FROM FLUID DESIGNER NURSE. PATIENT AOX2. CALM AND LAYING IN BED. RESPIRATIONS EVEN AND UNLABORED. ON ROOM AIR SATING 97%. NO RESPIRATORY DISTRESS NOTED. SKIN IS WARM AND DRY. IV SITE ON RFA 22G. INTACT AND PATENT. PLAN OF CARE WAS DISCUSSED. SAFETY PRECAUTIONS IN PLACE. BED IN LOW POSITION AND CALL LIGHT WITHIN REACH. WILL CONTINUE TO MONITOR.
[2020-07-07 08:00] VITALS: BP 142/57
--- NOTE | 2020-07-07 08:21 | NUR ---
Received report. There are no beds at this time. [facility] working on placement.
[2020-07-07] MEDS: PANTOPRAZOLE 40 MG TABEC PO SCH (10:15)
[2020-07-07] MEDS: METOPROLOL 50 MG TAB PO SCH (10:15)
[2020-07-07] MEDS: ATORVASTATIN 20 MG TAB PO SCH (10:20)
[2020-07-07] MEDS: NACL 0.9% 1,000 ML IV SCH (10:20)
[2020-07-07] MEDS: DABIGATRAN ETEXILATE MESYLAT 75 MG CAP PO SCH (10:20)
--- NOTE | 2020-07-07 10:20 | NUR ---
ALL SCHEDULED MEDS GIVEN. PATIENT IS STABLE NO DISTRESS NOTED. WILL CONTINUE TO MONITOR.
[2020-07-07 10:32] LABS: BASOPHILS % (AUTO) 1.1 % (0.0-2.0); EOSINOPHILS # (AUTO) 0.2 K/uL (0-0.4); EOSINOPHILS % (AUTO) 3.8 % (0.0-4.0); HEMATOCRIT 35.2 % (36-52); HEMOGLOBIN 11.2 g/dL (12.0-18.0); LYMPHOCYTES # (AUTO) 1.6 K/uL (2.0-11.5); LYMPHOCYTES % (AUTO) 36.7 % (20.5-51.1); MEAN CORPUSCULAR HEMOGLOBIN 29 pg (27-31); MEAN CORPUSCULAR HGB CONC 32 g/dL (33-37); MEAN CORPUSCULAR VOLUME 89.1 fL (80-94); MONOCYTES # (AUTO) 0.3 K/uL (0.8-1.0); MONOCYTES % (AUTO) 7.1 % (1.7-9.3); NEUTROPHILS # (AUTO) 2.2 K/uL (1.8-7.7); NEUTROPHILS % (AUTO) 51.3 % (42.2-75.2); PLATELET COUNT (AUTO) 220 K/uL (140-450); RED BLOOD CELL COUNT(AUTO) 3.95 MIL/uL (4.20-6.10); RED CELL DISTRIBUTION WIDTH 17.7 % (11.6-13.7); WHITE BLOOD COUNT (AUTO) 4.3 K/uL (4.8-10.8)
--- NOTE | 2020-07-07 12:05 | NUR ---
SPOKE TO [employer] BATTERY CHARGER FOR PATIENT. PATIENT IS TO BE PICKED UP BY SON AT 1500.
[2020-07-07 14:56] VITALS: BP 142/57
--- NOTE | 2020-07-07 15:45 | NUR ---
PATIENT DISCHARGED OFF THE UNIT. PATIENT WAS PICKED UP BY HIS SON AT THE LOBBY.
== END 2020-07-07 13:45 | disposition home health service (06) | DRG 871 ==
LOC: MED 08:32 → MTU 10:46
PROVIDERS: ADMIT Family Medicine; ATTEND Family Medicine
DX: A41.9 Sepsis, unspecified organism (principal); I21.A1 Myocardial infarction type 2; G93.41 Metabolic encephalopathy; N39.0 Urinary tract infection, site not specified; E87.6 Hypokalemia; E83.51 Hypocalcemia; E83.42 Hypomagnesemia; D50.9 Iron deficiency anemia, unspecified; E78.5 Hyperlipidemia, unspecified; E03.9 Hypothyroidism, unspecified; K21.9 Gastro-esophageal reflux disease without esophagitis; I10 Essential (primary) hypertension; E78.00 Pure hypercholesterolemia, unspecified; Z20.822 Contact with and (suspected) exposure to COVID-19; E11.40 Type 2 diabetes mellitus with diabetic neuropathy, unspecified; E86.0 Dehydration; E11.65 Type 2 diabetes mellitus with hyperglycemia; F03.90 Unspecified dementia, unspecified severity, without behavioral disturbance, psychotic disturbance, mood disturbance, and anxiety; Z88.8 Allergy status to other drugs, medicaments and biological substances
CPT/HCPCS: 36415; 70450; 71045; 80048; 80053; 80305; 81001; 82150; 82607; 82728; 82746; 82948; 83036; 83540; 83690; 83735; 83880; 84100; 84436; 84439; 84443; 84479; 84484; 85025; 85045; 85610; 85730; 87081; 87086; 93005; 97110; 97112; 97116; 97530; 99285; G0480; G0482; J0696; J1815; J7030; J7060; U0003

== ENCOUNTER 2022-05-13 13:48 | Emergency (ER) | payer MEDICAID, MEDICARE ==
[~2022-05-13] VITALS: Ht 180.3 cm; Wt 90.7 kg
[~2022-05-13 13:48] MED LIST: ATOR20TA40 PO; CHLO118S2 TP; DABI75CA PO; LANTUS SUBQ; LEVO0.0211 PO; METO25TA PO; MUPI2CRE22 NS; PANT40EC56 PO; ZGUARD TP
[2022-05-13 13:57] VITALS: BP 160/80
[2022-05-13] MEDS ORDERED: DEXTROSE 50% 50 ML SYR IVP ONE ×3 (14:00→19:10)
--- NOTE | 2022-05-13 14:06 | NUR ---
86 y/o male biba from home, daughter at home called and reports pt has been acting more altered than usual and pulled PICC line out. amr reports fire saw picc line on kitchen table, but unable to find location of where it was implanted. glucose en route was 38, amr gave 4mg glucagon IM. pt glucose here was 42 at this time. pt is chinese speaking, gcs 11. pt family unable to new determine baseline due to recent TIA pmh: TIA 04/25/22, AFIB, HTN, DM2 allergy: furosemide, naproxen, coumadin
[2022-05-13 14:31] LABS: HEMATOCRIT 33.1 % (36-52); HEMOGLOBIN 11.4 g/dL (12.0-18.0); MEAN CORPUSCULAR HEMOGLOBIN 35 pg (27-31); MEAN CORPUSCULAR HGB CONC 34 g/dL (33-37); MEAN CORPUSCULAR VOLUME 100.4 fL (80-94); PLATELET COUNT (AUTO) 241 K/uL (140-450); WHITE BLOOD COUNT (AUTO) 8.1 K/uL (4.8-10.8)
--- NOTE | 2022-05-13 14:39 | NUR ---
pt to katty arredondo at this time
[2022-05-13 14:54] LABS: ANION GAP 11.2 (8-16); CHLORIDE 96 mmol/L (98-107); CREATININE 0.7 mg/dL (0.6-1.3); GLUCOSE 61 mg/dL (74-106); POTASSIUM 4.2 mmol/L (3.5-5.1); SODIUM SERUM 131 mmol/L (136-145); UREA NITROGEN, BLOOD 12 mg/dL (7-18)
[2022-05-13 14:59] LABS: ALBUMIN 2.5 g/dL (3.4-5.0); BILIRUBIN,DIRECT 0.2 mg/dL (0.0-0.3); TOTAL BILIRUBIN 0.5 mg/dL (0.0-1.0)
--- NOTE | 2022-05-13 16:00 | NUR ---
oranje juice and jello given, able to swallow w no difficulties denies any pain, a fib on cm, o2 sat 98% sr up times 2
[2022-05-13] MEDS ORDERED: NACL 0.9% 1,000 ML IV ONE ×2 (16:20→17:20)
[2022-05-13] MEDS ORDERED: ERTAPENEM SODIUM 1,000 MG in NACL 0.9% 50 ML IV ONE (17:15)
[2022-05-13] MEDS ORDERED: MEROPENEM 1,000 MG in NACL 0.9% 50 ML IV ONE (17:35)
--- NOTE | 2022-05-13 17:45 | NUR ---
pt talkative, oriented to name, talks to himself, a fib on cm, o2 sat 98% at 2 l/m via nc, srup times 2
[2022-05-13] MEDS ORDERED: MEROPENEM 1,000 MG VIAL IV ONE (18:03)
--- NOTE | 2022-05-13 18:54 | NUR ---
bs 71 md aware
--- NOTE | 2022-05-13 19:14 | NUR ---
report to [facility] shift nurse, Verito, RN
--- NOTE | 2022-05-13 19:14 | NUR ---
report to [facility] shift nurse, Verito, RN
--- NOTE | 2022-05-13 19:57 | NUR ---
Patient tried to get out his bed, re-position patient.
--- NOTE | 2022-05-13 20:14 | NUR ---
Spoke with patient's son (Mario Mendez- He have power attoney his father.) [phone] to update patient status.
--- NOTE | 2022-05-13 20:30 | NUR ---
BS 102 , Dr. Rivas notified.
--- NOTE | 2022-05-13 20:34 | NUR ---
Provided apple juice for patient.
--- NOTE | 2022-05-13 21:01 | NUR ---
PT FAMILY AT BEDSIDE
--- NOTE | 2022-05-13 21:04 | NUR ---
Patient's family ( Aisha Soriano) at bedside, and confirmed -she have power of insurance attorney for patient, She spoke with Dr. Rivas for treatment plans.
[2022-05-13 21:11] LABS: EOSINOPHILS % (MANUAL) 1 % (0-4); LYMPHOCYTES % (MANUAL) 14 % (20-46); MONOCYTES % (MANUAL) 8 % (5-12)
--- NOTE | 2022-05-13 21:28 | NUR ---
Patient's family at bedside to provide food for patient, Dr. Rob womack.
[2022-05-13] MEDS ORDERED: HYDROcodone/APAP 5/325 MG 1 TAB TAB PO ONE (21:55)
--- NOTE | 2022-05-13 22:04 | NUR ---
Patient request pain medication for foot pain/wound, Dr. Rivas notified.
--- NOTE | 2022-05-13 22:09 | NUR ---
Provided urinal as request.
[2022-05-13] MEDS ORDERED: METOPROLOL 50 MG TAB PO SCH (22:50)
[2022-05-13] MEDS ORDERED: ATORVASTATIN 20 MG TAB ONE (23:11)
[2022-05-13] MEDS ORDERED: METOPROLOL 50 MG TAB ONE (23:13)
--- NOTE | 2022-05-13 23:19 | NUR ---
Given routine PM medications for patient.
[2022-05-13] MEDS ORDERED: GABA-636 PO (23:52)
[2022-05-13] MEDS ORDERED: CARER90 PO (23:52)
[2022-05-13] MEDS ORDERED: ATOR40TA PO (23:52)
[2022-05-13] MEDS ORDERED: INSU-1329 SC (23:52)
[2022-05-13] MEDS ORDERED: HYDR-1098 PO (23:52)
[2022-05-13] MEDS ORDERED: norco PO (23:52)
--- NOTE | 2022-05-14 00:51 | NUR ---
Patient appears to be resting comfortably in bed. Respirations even and unlabored.
--- NOTE | 2022-05-14 01:19 | NUR ---
Patient to be transferred to [facility]. Is being transferred due to Insurance. Receiving facility has accepting physician and available space. ER physician has signed transfer form. Patient or responsible constitution party has agreed to transfer and signed form. Patient belongings inventoried and will be sent with patient. Copy of nursing notes, lab reports, EKG, Physicians Orders and X-rays to be sent with patient. Report called to KELLY Kelley at receiving facility. [facility] ambulance service has been called for transfer. ETA is 1 hour.
--- NOTE | 2022-05-14 01:24 | NUR ---
Patient's family provided food for patient.
--- NOTE | 2022-05-14 02:22 | NUR ---
[facility] at bedside for transfer patient to [facility].
[2022-05-14 02:23] VITALS: BP 120/75
[2022-05-14] MEDS ORDERED: ATORVASTATIN 20 MG TAB PO ONE (09:00)
== END 2022-05-14 02:23 | disposition short-term general hospital (02) ==
LOC: MED 13:48
DX: R41.82 Altered mental status, unspecified (principal); Z20.822 Contact with and (suspected) exposure to COVID-19; E11.649 Type 2 diabetes mellitus with hypoglycemia without coma; I10 Essential (primary) hypertension; Z88.5 Allergy status to narcotic agent; Z88.8 Allergy status to other drugs, medicaments and biological substances; Z79.4 Long term (current) use of insulin; Z79.899 Other long term (current) drug therapy
CPT/HCPCS: 36415; 70450; 71045; 80048; 80076; 82948; 83605; 85025; 87426; 96361; 96365; 96366; 99291; J1335; J2185; J7030; Q0092

== ENCOUNTER 2023-04-21 17:44 | Emergency (ER) | payer MEDICARE ==
[~2023-04-21] VITALS: Ht 180.3 cm; Wt 59.0 kg
[~2023-04-21 17:44] MED LIST changes: -ATOR20TA40 PO; +ATOR40TA PO; +CARER90 PO; -CHLO118S2 TP; -DABI75CA PO; +GABA-636 PO; +HYDR-1098 PO; +INSU-1329 SC; -LANTUS SUBQ; -LEVO0.0211 PO; -METO25TA PO; -MUPI2CRE22 NS; -PANT40EC56 PO; -ZGUARD TP; +norco PO
== END 2023-04-21 18:05 ==
LOC: MED 17:44
DX: I46.9 Cardiac arrest, cause unspecified (principal); Z79.899 Other long term (current) drug therapy
CPT/HCPCS: 31500; 92950; 99285